=== PATIENT | male | born 1990 | race Caucasian/White ===

== ENCOUNTER → 2020-06-09 17:04 | Outpatient (BNVA) | payer BC, SELFPAY | PROVIDERS: Family Provider Pediatrics Adolescent Medicine; Visit Provider Nurse Practitioner Family | DX: R10.12 Left upper quadrant pain (principal) | CPT/HCPCS: 80053; 83690; 85025; 86308 ==

== ENCOUNTER → 2020-06-12 14:44 | Outpatient (BNVA) | payer BC, SELFPAY | PROVIDERS: Family Provider Pediatrics Adolescent Medicine; Visit Provider Nurse Practitioner Family | DX: R10.12 Left upper quadrant pain (principal) | CPT/HCPCS: 87177; 87209; 87506 ==

== ENCOUNTER 2020-07-19 09:03 | Outpatient (CLI) | payer BC, SELFPAY ==
--- NOTE | 2020-07-19 09:15 | US_ITS ---
WS: [id number] Complete ABDOMINAL ULTRASOUND HISTORY: R10.12 - Left upper quadrant pain COMPARISON: None available. Liver: 15.4 cm in length. Liver is normal size and echogenicity with no mass or intrahepatic dilatati on. Gallbladder: Normally distended with no gallstones, wall thickening or pericholecystic fluid. Gallbladder wall thickness: 0.1 cm. Pancreas: Normal size and echogenicity. CBD: 0.4 cm. Right kidney: 11.0 cm x 4.9 cm x 4.3 cm. No mass, cortical thickening or hydronephrosis. Left kidney: 10.4 cm x 5.7 cm x 5.8 cm. No mass, cortical thickening or hydronephrosis. Spleen: Normal size and echogenicity. Abdominal aorta and IVC are within normal limits. No ascites. US/US abdomen complete* [id number] IMPRESSION: Normal complete abdomen ultrasound.
== END 2020-07-19 09:04 | disposition home or self-care (01) ==
PROVIDERS: PCP Nurse Practitioner Family; Visit Provider Nurse Practitioner Family
DX: R10.12 Left upper quadrant pain (principal)
CPT/HCPCS: 76700